=== PATIENT | male | born 1985 | race African-American/Black ===

== ENCOUNTER 2021-09-06 05:55 | Inpatient (IN) ==
[2021-09-06] MEDS ORDERED: *HR* Heparin 5,000 UNIT/ML VIAL IVP PRN ×2 (11:41)
[2021-09-06] MEDS ORDERED: *HR* Heparin 5,000 UNIT/ML VIAL IVP ONE (11:41)
[2021-09-06] MEDS ORDERED: Naloxone 0.4 MG/ML INJ IVP PRN (11:53)
[2021-09-06] MEDS ORDERED: Ondansetron 4 MG/2 ML VIAL IVP PRN (11:53)
[2021-09-06] MEDS ORDERED: Perflutren Lipid Microsphere 1.3 ML in 0.9 % Sodium Chloride 8.7 ML IVP PRN (12:34)
[2021-09-06 12:49] LABS: Hematocrit 52.2 % (37.5-50.1); Hemoglobin 17.5 g/dL (12.9-16.9); Mean Corpuscular HGB Conc 33.5 g/dL (31.6-35.5); Mean Corpuscular Hemoglobin 30.1 pg (28.0-33.3); Mean Corpuscular Volume 89.8 fL (83.0-100.0); Mean Platelet Volume 10.2 fL (9.4-12.4); Platelet Count 186 K/mcL (140-400); Red Blood Count 5.81 M/mcL (4.19-5.50); White Blood Count 5.9 K/mcL (4.3-11.1)
[2021-09-06 13:05] LABS: Heparin anti-factor XA UFH 0.14 IU/mL (0.30-0.70); Prothrombin Time 11.4 Seconds (9.4-12.1)
[2021-09-06] MEDS: Heparin 25,000UNIT/250ML 1/2NS 25,000 UNIT/250 ML IV.SOLN IVC SCH (14:12)
[2021-09-06] MEDS ORDERED: Isovue-370 500 ML BOTTLE IVP ONE (19:05)
[2021-09-07 01:32] LABS: Basophils # 0.1 K/mcL (0.0-0.2); Basophils % 0.8 %; Eosinophils # 0.3 K/mcL (0.0-0.6); Hematocrit 52.2 % (37.5-50.1); Hemoglobin 17.3 g/dL (12.9-16.9); Immature Granulocytes % 0.1 % (0-4); Lymphocytes # 3.4 K/mcL (0.6-4.6); Lymphocytes % 47.2 %; Mean Corpuscular HGB Conc 33.1 g/dL (31.6-35.5); Mean Corpuscular Hemoglobin 29.6 pg (28.0-33.3); Mean Corpuscular Volume 89.4 fL (83.0-100.0); Mean Platelet Volume 10.7 fL (9.4-12.4); Monocytes # 0.7 K/mcL (0.0-1.3); Monocytes % 10.2 %; Neutrophils # 2.7 K/mcL (1.6-8.9); Platelet Count 194 K/mcL (140-400); Red Blood Count 5.84 M/mcL (4.19-5.50); Red Cell Distribution Width 13.1 % (11.5-14.5); Segmented Neutrophils % 37.7 %; White Blood Count 7.2 K/mcL (4.3-11.1)
[2021-09-07 01:41] LABS: Alanine Aminotransferase 49 Units/L (7-52); Albumin 4.2 g/dL (3.5-5.7); Albumin/Globulin Ratio 1.5 (1.1-2.2); Alkaline Phosphatase 68 Units/L (34-104); Aspartate Amino Transferase 30 Units/L (13-39); BUN/Creatinine Ratio 13 (6-26); Bilirubin,Total 0.4 mg/dL (0.3-1.0); Blood Urea Nitrogen 15 mg/dL (6-20); Calcium 9.3 mg/dL (8.6-10.3); Carbon Dioxide 27 mEq/L (23-29); Chloride 104 mEq/L (98-107); Cholesterol 209 mg/dL (< 200); Globulin 2.8 g/dL (2.4-3.5); Glucose 90 mg/dL (70-105); HDL Cholesterol 52 mg/dL (40-59); LDL Cholesterol,Calculated 131 mg/dL (< 100); Osmolality,Calculated 284 (280-300); Potassium 3.8 mEq/L (3.5-5.1); Sodium 137 mEq/L (136-145); Triglycerides 129 mg/dL (< 150); eGFR For African Americans > 60 (> 60); eGFR For Non-African Americans > 60 (> 60)
[2021-09-07 01:44] LABS: INR 1.1; Prothrombin Time 12.4 Seconds (9.4-12.1)
[2021-09-07] MEDS: Heparin 25,000UNIT/250ML 1/2NS 25,000 UNIT/250 ML IV.SOLN IVC SCH ×2 (05:17→09:56)
[2021-09-07 06:42] LABS: Estimated Average Glucose 120 mg/dl; Hemoglobin A1C 5.8 %
[2021-09-07] MEDS: Aspirin 81 MG TAB.CHEW PO SCH (07:39)
[2021-09-07 21:51] LABS: Influenza A PCR Negative (Negative); Influenza B PCR Negative (Negative); Resp. Syncytial Virus PCR Negative (Negative)
[2021-09-07 21:54] LABS: SARS-CoV-2 by PCR (In House) Positive (Negative)
[2021-09-08] MEDS: Heparin 25,000UNIT/250ML 1/2NS 25,000 UNIT/250 ML IV.SOLN IVC SCH ×4 (02:00→19:30)
[2021-09-08 08:13] LABS: Basophils % 0.5 %; Eosinophils # 0.2 K/mcL (0.0-0.6); Eosinophils % 2.6 %; Hematocrit 51.5 % (37.5-50.1); Hemoglobin 17.4 g/dL (12.9-16.9); Immature Granulocytes % 0.5 % (0-4); Lymphocytes # 2.7 K/mcL (0.6-4.6); Lymphocytes % 41.7 %; Mean Corpuscular HGB Conc 33.8 g/dL (31.6-35.5); Mean Corpuscular Hemoglobin 30.1 pg (28.0-33.3); Mean Corpuscular Volume 88.9 fL (83.0-100.0); Mean Platelet Volume 10.3 fL (9.4-12.4); Monocytes # 0.6 K/mcL (0.0-1.3); Platelet Count 179 K/mcL (140-400); Red Blood Count 5.79 M/mcL (4.19-5.50); Red Cell Distribution Width 13.2 % (11.5-14.5); Segmented Neutrophils % 45.7 %; White Blood Count 6.6 K/mcL (4.3-11.1)
[2021-09-08 08:20] LABS: BUN/Creatinine Ratio 16 (6-26); Blood Urea Nitrogen 16 mg/dL (6-20); Calcium 9.2 mg/dL (8.6-10.3); Carbon Dioxide 24 mEq/L (23-29); Chloride 107 mEq/L (98-107); Glucose 79 mg/dL (70-105); Magnesium 1.9 mg/dL (1.6-2.6); Osmolality,Calculated 278 (280-300); Potassium 3.8 mEq/L (3.5-5.1); Sodium 134 mEq/L (136-145); eGFR For African Americans > 60 (> 60); eGFR For Non-African Americans > 60 (> 60)
[2021-09-08] MEDS ORDERED: amLODIPine 5 MG TABLET PO SCH (09:12)
[2021-09-08] MEDS: Aspirin 81 MG TAB.CHEW PO SCH (09:26)
[2021-09-08] MEDS: Nicotine 21 MG PATCH.TD24 TD SCH (09:26)
[2021-09-08] MEDS ORDERED: Apixaban 5 MG TABLET PO SCH (21:00)
[2021-09-08] MEDS: Apixaban 5 MG TABLET PO SCH (21:12)
[2021-09-08 22:29] VITALS: O2SAT 97
[2021-09-08] MEDS ORDERED: Melatonin 3 MG TABLET PO ONE (23:13)
[2021-09-09 07:44] VITALS: BP 175/100; PULSE 89; TEMP 98.2
[2021-09-09] MEDS ORDERED: carvediloL 6.25 MG TABLET PO SCH (08:00)
[2021-09-09 08:05] LABS: BUN/Creatinine Ratio 14 (6-26); Basophils % 0.6 %; Blood Urea Nitrogen 14 mg/dL (6-20); Calcium 9.6 mg/dL (8.6-10.3); Carbon Dioxide 26 mEq/L (23-29); Chloride 103 mEq/L (98-107); Eosinophils # 0.1 K/mcL (0.0-0.6); Eosinophils % 2.4 %; Glucose 80 mg/dL (70-105); Hematocrit 51.5 % (37.5-50.1); Hemoglobin 17.6 g/dL (12.9-16.9); Immature Granulocytes % 0.2 % (0-4); Lymphocytes # 1.9 K/mcL (0.6-4.6); Lymphocytes % 36.8 %; Magnesium 1.8 mg/dL (1.6-2.6); Mean Corpuscular HGB Conc 34.2 g/dL (31.6-35.5); Mean Corpuscular Hemoglobin 30.3 pg (28.0-33.3); Mean Corpuscular Volume 88.8 fL (83.0-100.0); Monocytes # 0.5 K/mcL (0.0-1.3); Monocytes % 10.7 %; Neutrophils # 2.5 K/mcL (1.6-8.9); Osmolality,Calculated 277 (280-300); Platelet Count 202 K/mcL (140-400); Potassium 3.6 mEq/L (3.5-5.1); Red Cell Distribution Width 13.1 % (11.5-14.5); Segmented Neutrophils % 49.3 %; Sodium 134 mEq/L (136-145); White Blood Count 5.1 K/mcL (4.3-11.1); eGFR For African Americans > 60 (> 60); eGFR For Non-African Americans > 60 (> 60)
[2021-09-09] MEDS ORDERED: NIFEdipine XL (24 HR) 60 MG TAB.ER.24 PO SCH (09:00)
[2021-09-09] MEDS: Nicotine 21 MG PATCH.TD24 TD SCH (09:31)
[2021-09-09] MEDS: Aspirin 81 MG TAB.CHEW PO SCH (09:32)
[2021-09-09] MEDS: Apixaban 5 MG TABLET PO SCH (09:32)
== END 2021-09-09 12:46 | disposition home or self-care (01) | DRG 45 ==
LOC: 3BNU → SUATTDRO 10:14 → 2ANU 11:10
PROVIDERS: ADMIT Student in an Organized Health Care Education/Training Program; ATTEND Pharmacist